=== PATIENT | female | born 1985 | race Caucasian/White ===

== ENCOUNTER → 2023-11-30 10:50 | Outpatient (REF) | payer BC, SELFPAY | LOC: HWRAD 10:50 | PROVIDERS: ATTENDING PHYSICIAN Obstetrics & Gynecology; FAMILY PHYSICIAN Internal Medicine | DX: N92.0 Excessive and frequent menstruation with regular cycle (principal); N94.6 Dysmenorrhea, unspecified | CPT/HCPCS: 76830; 76856 ==

== ENCOUNTER 2024-02-02 15:08 | Emergency (ER) | payer BC, SELFPAY ==
[2024-02-02 15:14] VITALS: BP 121/69
--- NOTE | 2024-02-02 15:17 | ED.PDOC.TRB ---
ED Provider Triage
-
Patient seen by provider in Triage?: Seen in Triage
Attestation: A medical screening examination has been initiated by a qualified medical provider. Based on the assessment performed at this time, it has been determined that an emergent medical condition may exist and the patient has been informed
that further medical evaluation and possible additional diagnostic testing may be needed.
HPI: 38-year-old female with history of anxiety presents to the emergency department for evaluation of sudden onset left-sided chest discomfort that began at approximately 1420 this afternoon, states it began while she was reaching across her body
to grab something. Symptoms were then followed by diffuse paresthesias of the arms and legs and a heaviness to the face. Symptoms are ongoing at this time. Denies leg swelling or calf cramping. No recent prolonged travel or recent illnesses.
Does not take any exogenous hormones. Last menstrual cycle was 2 weeks ago
GENERAL: Alert , in no apparent distress
EYE: No visual abnormalities.
NECK: Trachea midline
ENT: No visible abnormalities.
LUNGS: No acute respiratory distress
NEUROLOGICAL: Alert and oriented
SKIN: Skin intact. No visible changes.
MUSCULOSKELETAL: Moving extremities normally
PSYCH: Normal and appropriate interaction.
Assessment: Appears well, initial triage EKG is nonischemic. Meets PE rule out criteria. Will check basic labs and troponin
This is a medical evaluation conducted in person to initiate diagnostic evaluation and provide initial therapeutics. Please see further documentation by the treating clinician.
[2024-02-02 15:31] LABS: Hematocrit 35.2 % (37.0-47.0); Hemoglobin 12.2 g/dL (12.0-16.0); Mean Corp Hgb Conc. 34.7 g/dL (33.0-37.0); Mean Corpuscular Hgb 27.9 pg (27.0-31.0); Mean Corpuscular Volume 80.4 fL (81.0-99.0); Mean Platelet Volume 11.8 fL (7.4-10.4); Platelet Count 255 10^3/uL (130-400); Red Blood Cell Count 4.38 10^6/uL (4.20-5.40); Red Cell Dist. Width 12.2 % (11.5-14.5); White Blood Cell Count 7.1 10^3/uL (4.8-10.8)
[2024-02-02 15:41] LABS: HCG, Serum Qualitative Screen Negative
[2024-02-02 15:50] LABS: ALT (SGPT) 13 U/L (0-35); AST (SGOT) 20 U/L (14-36); Albumin 4.8 g/dl (3.5-5.0); Alkaline Phosphatase 68 U/L (38-126); Blood Urea Nitrogen 19 mg/dl (7-17); Carbon Dioxide 22 mmol/L (22-30); Chloride 103 mmol/L (98-107); Glucose 98 mg/dl (70-99); Potassium 3.5 mmol/L (3.5-5.1); Sodium 142 mmol/L (135-145); Total Bilirubin 0.3 mg/dl (0.2-1.3); Total Protein 7.5 g/dl (6.3-8.2); eGFR > 60.00
[2024-02-02 15:56] LABS: Troponin I < 0.012 ng/ml
[2024-02-02 16:11] VITALS: BP 113/71
--- NOTE | 2024-02-02 16:40 | ED.GENMED ---
History of Present Illness
<Jewels Lucas PA-C - Last Filed: 02/02/24 17:42>
General
Chief Complaint: Cardiac Symptoms
Source: patient
Exam Limitations: none
Time Seen by Provider: 02/02/24 15:44
Nursing documentation reviewed up to this point in time: agreed with
History of Present Illness
History of Present Illness:
Patient is a 38-year-old female presenting for evaluation of left-sided chest discomfort which started approximately 1 hour prior to arrival. Patient states that she was lying in her bed around 2:20 PM when she reached across her body to the left
side to grab synchronize a table and had a acute onset pain in her left lateral chest. Patient describes it as a 'sharp, pressure '. She then states that she felt anxious and had some numbness/tingling in her hands and feet. She did feel somewhat
lightheaded during this time. Pain seem to be present for about an hour and then resolved. Patient denies any associated shortness of breath, nausea, vomiting, diaphoresis, or dizziness.
Patient states she had had somewhat similar symptoms in the past although they seem to resolve quickly. Patient states given symptoms were prolonged today she came to the emergency department for evaluation.
Patient denies any exogenous hormone use. No recent travel. No personal or family history of blood clots or clotting disorders.
No other concerns today. Patient asymptomatic this time.
Review of Systems
<Jewels Lucas PA-C - Last Filed: 02/02/24 17:42>
Review of Systems
Allergies reviewed?: Yes
All Other Systems: ROS reviewed and negative except as documented in HPI and ROS
Phy Exam
<Jewels Lucas PA-C - Last Filed: 02/02/24 17:42>
Physical Exam
Physical Exam:
Vitals: Patient's vital signs are stable
General: Patient is well appearing, no acute distress. Nontoxic-appearing
Skin: Warm and dry, no rashes or lesions
Head: Normocephalic, atraumatic
Eyes: Sclera nonicteric. EOMs intact. No nystagmus.
Throat: Protecting airway
Neck: Normal ROM, no cervical spine tenderness, no meningismus
Cardiac: Regular rate and rhythm, no murmurs. Left anterolateral chest wall with mild tenderness to palpation. No overlying erythema or ecchymoses.
Pulm: Normal respiratory effort, no wheezes, rales, rhonchi heard on exam.
Abdomen: Abdomen soft. No abdominal tenderness.
Extremities: No evidence of cyanosis or edema. Great distal pulses
Neuro: Grossly intact
Psychiatric: Normal affect.
Course
<Jewels Lucas PA-C - Last Filed: 02/02/24 17:42>
Orders/Labs/Results
Orders:
Orders
02/02/24 15:09
EKG [Electrocardiogram (*1)] Urgent
Reason for Study: Chest Pain
02/02/24 15:10
EKG- Treatment ONCE
02/02/24 15:16
Test Result ONCE
CR Chest - 2 Views Urgent
Comment:
Reason For Exam: SOB
02/02/24 15:22
Complete Blood Count/No Diff Urgent
Comprehensive Metabolic Panel Urgent
HCG, Serum Qualitative Screen Urgent
Troponin I Urgent
Abnormal Lab Results
02/02/24
15:22
Hct 35.2 L %
(37.0-47.0)
MCV 80.4 L fL
(81.0-99.0)
MPV 11.8 H fL
(7.4-10.4)
BUN 19 H mg/dl
(7-17)
02/02/24 15:22
02/02/24 15:22
Vital Signs
Initial and Last Documented VS:
Initial Vital Signs
Pulse Resp BP Pulse Ox
102 20 121/69 100
02/02/24 15:14 02/02/24 15:14 02/02/24 15:14 02/02/24 15:14
Last Documented Vital Signs
Pulse Resp BP Pulse Ox
77 20 113/71 98
02/02/24 16:11 02/02/24 16:11 02/02/24 16:11 02/02/24 16:11
<Bg Arreaga, DO - Last Filed: 02/02/24 17:41>
Orders/Labs/Results
Orders:
Orders
02/02/24 15:09
EKG [Electrocardiogram (*1)] Urgent
Reason for Study: Chest Pain
02/02/24 15:10
EKG- Treatment ONCE
02/02/24 15:16
Test Result ONCE
CR Chest - 2 Views Urgent
Comment:
Reason For Exam: SOB
02/02/24 15:22
Complete Blood Count/No Diff Urgent
Comprehensive Metabolic Panel Urgent
HCG, Serum Qualitative Screen Urgent
Troponin I Urgent
Abnormal Lab Results
02/02/24
15:22
Hct 35.2 L %
(37.0-47.0)
MCV 80.4 L fL
(81.0-99.0)
MPV 11.8 H fL
(7.4-10.4)
BUN 19 H mg/dl
(7-17)
02/02/24 15:22
02/02/24 15:22
Vital Signs
Initial and Last Documented VS:
Initial Vital Signs
Pulse Resp BP Pulse Ox
102 20 121/69 100
02/02/24 15:14 02/02/24 15:14 02/02/24 15:14 02/02/24 15:14
Last Documented Vital Signs
Pulse Resp BP Pulse Ox
77 20 113/71 98
02/02/24 16:11 02/02/24 16:11 02/02/24 16:11 02/02/24 16:11
<Jewels Lucas PA-C - Last Filed: 02/02/24 17:42>
MDM/Problems Addressed
Differential Diagnosis Includes:
Not limited to: Muscle strain/spasm, costochondritis, pleurisy, pericarditis, pneumothorax, pneumonia, doubt ACS or PE
MDM/Problems Addressed:
38-year-old female presenting to the emergency department following 1 hour long episode of left lateral chest discomfort associated with mild lightheadedness which is since resolved. Symptoms initially started after reaching across to her to her
night side table lying in bed. No exertional component to pain. Very mild pleuritic component although resolved. No associated shortness of breath, nausea/vomiting, dizziness, or diaphoresis. Patient asymptomatic at this time. Vital stable.
Patient afebrile. Physical exam as above. Patient is extremely well-appearing, nontoxic and conversational. She is a milligrams distress at this time. Heart regular rate and rhythm. Lungs clear bilaterally. Mild tenderness to palpation to left
anterior chest wall. Patient is perfusing well with an equal distal pulses. No lower extremity swelling or tenderness. No clinical evidence of DVT on exam. Labs were initiated in triage which show no clinically significant abnormalities.
test negative. Troponin is negative. Mechanism and physical exam most consistent with musculoskeletal etiology. Very low suspicion for ACS -do not feel repeat troponin is indicated at this time as patient remains asymptomatic. Patient
successfully ruled out with PERC criteria�do not suspect PE. No risk factors. Will check chest x-ray. Anticipate discharge with primary care follow-up.
Chronic conditions affecting care:
N/A
Acute Exacerbation and/or Progression of Chronic Illness:
N/A
<Jewels Lucas PA-C - Last Filed: 02/02/24 17:42>
*Pulse Oximetry
Patient hypoxic: no
*EKG
Interpreted by ED Provider?: Yes
EKG Intrepretation Date: 02/02/24
Interpretation: normal
Comparison EKG: no comparison EKG present
Heart Rate: 79
Rate: normal
Rhythm: sinus
[place]: normal axis
Interval: normal interval
QRS Pattern: normal QRS
Ischemia: non-specific ST changes
*[employer] Interpretation
Rate: normal
Interpretation: normal
Heart Rate: 78
Rhythm: sinus
*Critical Care Note
Total Time (30-74mins, 75-104mins- exclusive of procedures): Not Applicable
<Jewels Lucas PA-C - Last Filed: 02/02/24 17:42>
Update Note
Update Note:
Update: Chest x-ray without any acute abnormalities. Patient has remained asymptomatic and hemodynamically stable throughout duration of time in emergency department. Suspect likely musclar strain. Do not suspect ACS/PE. Will discharge with close
return precautions and primary care follow-up. Patient comfortable plan. Patient seen with attending physician.
ED Attending Note
<Jewels Lucas PA-C - Last Filed: 02/02/24 17:42>
-
Portions of this chart may have been created with voice recognition software.� Occasional wrong word or��sound alike� substitutions may have occurred due to the inherent limitations of voice recognition software.
<Bg Arreaga DO - Last Filed: 02/02/24 17:41>
ED Attending Note
Patient seen and examined by attending physician: Yes
I performed a history and physical exam of patient and discussed management with resident, I reviewed resident's note and agree with documented findings and plan of care.: Yes
ED Attending Note:
I have reviewed and agree with history and treatment plan by Jewels Mckenzie. My exam revealed
Physical Exam
General: no apparent distress, not acutely ill
Neck: supple. no meningeal signs. normal posterior pharynx
Heart: s1/s2 regular rate and rhythm, no murmur. equal radial
pulses.
HEENT: Pupils equal round reactive to light, EOMI
Lungs: no acute respiratory distress. clear bilaterally, tenderness to palpation at left chest wall, reproducing pain
Abdomen: normal bowel sounds. not tender. no CVAT
Neuro: alert and oriented. no focal neurological deficits cranial nerves II through XII intact
Skin: no rash
Psychiatric: well kept. interactive and cooperative
Extremities: no edema. no calf tenderness. negative homans. good distal pulses
38-year-old female with chest wall pain. Doubt ACS or PE. Suspect chest wall strain. Stable for discharge. Follow-up with primary care.
Discharge Plan
Departure
Patient Disposition: Home (Routine Discharge)
Date of Disposition: 02/02/24
Time of Disposition: 17:40
Patient with high blood pressure during this ER visit?: No
Condition: Good
Covid-19: Not Applicable
Discharge Problem:
Chest pain
Instructions: Chest Pain (DC)
Prescriptions:
No Action
sertraline 50 MG tablet
50 mg PO DAILY
no.[id number] 1 EACH tablet
1 ea PO DAILY
acetaminophen 325 MG tablet
650 mg PO Q4HPRN PRN (Reason: mild pain) 0RF
sennosides-docusate sodium 1 TABLET tablet
1 tab PO DAILYPRN PRN (Reason: constipation) Qty: 30 0RF
ibuprofen 600 MG tablet
600 mg PO Q6HPRN PRN (Reason: moderate pain/cramps) Qty: 30 0RF
Referrals:
UNKNOWN - PT DOES,NOT KNOW [Unknown Provider] -
Activity Restrictions/Additional Instructions:
RETURN TO THE EMERGENCY DEPARTMENT WITH ANY FEVERS, CHEST PAIN, SHORTNESS OF BREATH, LIGHTHEADEDNESS/DIZZINESS, WORSENING IN CURRENT SYMPTOMS, OR ANY OTHER CONCERNS
-It is important stay well-hydrated. You should take it easy over the next 2 days. You can take Motrin and/or Tylenol as needed for any discomfort.
-You should follow-up with your primary care provider for further evaluation/management.
Monitor your symptoms closely and return to the emergency department any acute worsening/new symptoms.
Interventions
Interventions:
*Risk Screen - Suicide Last Done: 02/02/24 15:14
*General Assessment Last Done: 02/02/24 15:14
*Neglect/Abuse Screening Last Done: 02/02/24 15:14
ED- Pulmonary Assessment Last Done: 02/02/24 16:15
ED- Cardiac Assessment Last Done: 02/02/24 16:15
Discharge Date and Time
Print Language: KOSOVAN
[2024-02-02 18:38] VITALS: BP 109/71
== END 2024-02-02 18:39 | disposition home or self-care (01) ==
LOC: EMR 15:08
PROVIDERS: Physician Assistant; EMERGENCY PHYSICIAN Emergency Medicine; FAMILY PHYSICIAN Internal Medicine
DX: R07.89 Other chest pain (principal)
CPT/HCPCS: 99285; 71046; 80053; 84484; 84703; 85027; 93005

== ENCOUNTER → 2024-02-16 09:25 | Outpatient (REF) | payer BC, SELFPAY | LOC: HWRAD 09:25 | PROVIDERS: ATTENDING PHYSICIAN Obstetrics & Gynecology; FAMILY PHYSICIAN Internal Medicine | DX: N94.6 Dysmenorrhea, unspecified (principal); N92.0 Excessive and frequent menstruation with regular cycle | CPT/HCPCS: 76830; 76856 ==